=== PATIENT | male | born 1955 | race African-American/Black ===

== ENCOUNTER 2020-07-08 07:12 | Inpatient (IN) | payer OTHER ==
[~2020-07-08] VITALS: Ht 188 cm; Wt 99.8 kg
[2020-07-08 09:17] LABS: Basophils # (auto) 0 10 ^3/uL (0-0.2); Basophils % (auto) 0.5 % (0.0-2.0); Eosinophils # (auto) 0 10 ^3/uL (0-0.8); Eosinophils % (auto) 0.3 % (0.0-7.0); Hematocrit 48.1 % (41.0-53.0); Hemoglobin 16.6 g/dL (13.5-17.5); Lymphocytes # (auto) 0.9 10 ^3/uL (0.4-5.4); Lymphocytes % (auto) 11.9 % (10.0-50.0); Mean Corpuscular Hgb Conc. 34.6 g/dL (32.0-36.0); Mean Corpuscular Volume 95.5 fL (80.0-100.0); Monocytes # (auto) 0.5 10 ^3/uL (0-1.3); Neutrophils # (auto) 5.9 10 ^3/uL (1.6-8.6); Neutrophils % (auto) 80.3 % (37.0-80.0); Platelet Count (auto) 142 10^3/uL (140-450); Red Blood Cells 5.04 10^6/uL (4.5-5.90); Red Cell Distribution Width 13.9 % (11.8-14.3); White Blood Cell 7.4 10^3/uL (4.4-10.8)
[2020-07-08 09:29] LABS: Calcium 9.5 mg/dL (8.5-10.1); Potassium 3.9 mmol/L (3.5-5.1)
[2020-07-08 09:34] LABS: BUN/Creatinine Ratio 6.5
[2020-07-08] MEDS ORDERED: MORPHINE SULF INJ 2 MG/ML SYRINGE 1ML IV ONE (09:45)
[2020-07-08] MEDS ORDERED: NITROGLYCERIN 2% OINT 1GM PKG TD ONE (09:45)
[2020-07-08] MEDS ORDERED: ASPirin 81 mg TAB PO ONE (09:45)
[2020-07-08] MEDS ORDERED: FUROSEMIDE 20 MG/2 ML VIAL IV ONE (10:15)
[2020-07-08] MEDS ORDERED: ASPI-498 PO (11:14)
[2020-07-08] MEDS ORDERED: LISI-275 PO (11:14)
[2020-07-08] MEDS ORDERED: FURO1TAB33 PO (11:14)
[2020-07-08] MEDS ORDERED: ENOXAPARIN SOD 100 MG/1 ML SYRINGE SC ONE (11:15)
[2020-07-08] MEDS ORDERED: NITROGLYCERIN 0.4 MG SL TAB SL PRN ×3 (11:15→12:45)
[2020-07-08] MEDS ORDERED: MORPHINE SULF INJ 2 MG/ML SYRINGE 1ML IV PRN ×2 (11:15→12:45)
[2020-07-08 11:35] LABS: INR 1.15 (0.9-1.15); Partial Thromboplastin Time 30.3 sec (23.0-31.2)
[2020-07-08 11:55] LABS: Urine Bacteria NONE SEEN /hpf (None Seen); Urine Blood TRACE /uL (Negative); Urine Specific Gravity 1.007 (1.001-1.035); Urine WBC 2 /hpf (0 - 3)
[2020-07-08] MEDS ORDERED: ONDANSETRON HCL 4 MG/2 ML VIAL IV PRN (12:45)
[2020-07-08] MEDS ORDERED: ATORVASTATIN 20 MG TAB PO ONE (12:45)
[2020-07-08] MEDS ORDERED: ALUM & MAG HYDROX-SIMETH LIQ(MAALOX) 30 ML PO ONE (12:45)
[2020-07-08] MEDS ORDERED: ALBUTEROL SULF 2.5 MG/0.5ML(0.5%) NEB SOLN NEB ONE (12:45)
[2020-07-08] MEDS ORDERED: DOCUSATE SOD 100 MG CAP PO PRN (12:45)
[2020-07-08] MEDS ORDERED: AZITHROMYCIN 500MG/ 250ML 250 ML IV ONE (12:45)
[2020-07-08] MEDS ORDERED: ACETAMINOPHEN 325 MG TAB PO PRN (12:45)
[2020-07-08] MEDS ORDERED: cefTRIAXone 1GM/50ML D5W 50 ML IV ONE (12:45)
[2020-07-08] MEDS ORDERED: METOPROLOL TARTRATE 25 MG TAB PO ONE (12:45)
[2020-07-08] MEDS ORDERED: MORPHINE SULFATE 4 MG/ML SYR/VIAL IV PRN (12:45)
[2020-07-08] MEDS ORDERED: HYDROcodone-ACET 5/325MG TAB PO PRN (12:45)
[2020-07-08] MEDS ORDERED: LORazepam 0.5 MG TAB PO PRN (12:45)
[2020-07-08] MEDS: IPRATROPIUM BROM 0.5 MG/2.5ML INH SOL NEB SCH ×4 (14:00→22:29)
[2020-07-08 14:13] VITALS: BP 132/73
[2020-07-08 14:43] LABS: Urine Bacteria NONE SEEN /hpf (None Seen); Urine Blood 1+ /uL (Negative); Urine Hyaline Cast FEW /lpf (0 - 2); Urine Mucus FEW (None Seen); Urine Specific Gravity 1.007 (1.001-1.035); Urine WBC 1 /hpf (0 - 3)
[2020-07-08] MEDS: MAGNESIUM SULFATE 1GM/100ML 100 ML IV SCH ×2 (15:28→17:21)
[2020-07-08 15:37] LABS: Barbiturate Scree,Urine NEGATIVE (NEGATIVE); Benzodiazephine Screen, Urine NEGATIVE (NEGATIVE); Cannabinoid Screen, Urine POSITIVE (NEGATIVE); Cocaine Screen, Urine NEGATIVE (NEGATIVE); Phencyclidine Screen, Urine NEGATIVE (NEGATIVE)
[2020-07-08 15:44] LABS: Amphetamine Screen, Urine NEGATIVE (NEGATIVE); Opiate Scree,Urine NEGATIVE (NEGATIVE)
[2020-07-08 17:04] VITALS: BP 152/84
[2020-07-08] MEDS: FUROSEMIDE 20 MG/2 ML VIAL IV SCH (18:19)
[2020-07-08] MEDS: ALBUTEROL SULF 2.5 MG/0.5ML(0.5%) NEB SOLN NEB PRN ×2 (18:21→22:29)
[2020-07-08] MEDS: CARVEDILOL 3.125 MG TAB PO SCH (22:07)
[2020-07-08 22:25] VITALS: BP 117/65
[2020-07-09] MEDS: IPRATROPIUM BROM 0.5 MG/2.5ML INH SOL NEB SCH ×6 (02:00→22:29)
[2020-07-09] MEDS: MORPHINE SULF INJ 2 MG/ML SYRINGE 1ML IV PRN ×2 (04:24→21:48)
[2020-07-09 04:55] VITALS: BP 148/77
[2020-07-09] MEDS: FUROSEMIDE 20 MG/2 ML VIAL IV SCH ×2 (05:54→18:29)
[2020-07-09] MEDS: ALBUTEROL SULF 2.5 MG/0.5ML(0.5%) NEB SOLN NEB PRN ×3 (06:19→14:40)
[2020-07-09 07:12] LABS: Basophils # (auto) 0.1 10 ^3/uL (0-0.2); Eosinophils # (auto) 0 10 ^3/uL (0-0.8); Eosinophils % (auto) 0.6 % (0.0-7.0); Hematocrit 48.4 % (41.0-53.0); Hemoglobin 16.7 g/dL (13.5-17.5); Lymphocytes # (auto) 1.3 10 ^3/uL (0.4-5.4); Lymphocytes % (auto) 15.8 % (10.0-50.0); Mean Corpuscular Hemoglobin 32.9 pg (28.0-32.0); Mean Corpuscular Hgb Conc. 34.6 g/dL (32.0-36.0); Mean Corpuscular Volume 95.3 fL (80.0-100.0); Monocytes # (auto) 0.7 10 ^3/uL (0-1.3); Monocytes % (auto) 8.5 % (0.0-12.0); Neutrophils # (auto) 6.1 10 ^3/uL (1.6-8.6); Neutrophils % (auto) 74.1 % (37.0-80.0); Nucleated Red Blood Cells % 0.1 %; Platelet Count (auto) 153 10^3/uL (140-450); Red Blood Cells 5.08 10^6/uL (4.5-5.90); Red Cell Distribution Width 13.9 % (11.8-14.3); White Blood Cell 8.2 10^3/uL (4.4-10.8)
[2020-07-09 07:29] LABS: Albumin 3.9 g/dL (3.4-5.0); Calcium 8.9 mg/dL (8.5-10.1); Magnesium 2.2 mg/dL (1.6-2.6); Potassium 3.5 mmol/L (3.5-5.1)
[2020-07-09 07:32] LABS: INR 1.13 (0.9-1.15)
[2020-07-09 07:35] LABS: BUN/Creatinine Ratio 6.9; Bilirubin, Total 1.4 mg/dL (0.2-1.0); Phosphorus 3.4 mg/dL (2.5-4.90); Total Protein 7.6 g/dL (6.4-8.2); Uric Acid 6.6 mg/dL (3.5-7.2)
[2020-07-09] MEDS: cefTRIAXone 1GM/50ML D5W 50 ML IV SCH (08:42)
[2020-07-09 09:00] VITALS: BP 130/94
[2020-07-09] MEDS: AZITHROMYCIN 500MG/ 250ML 250 ML IV SCH (09:43)
[2020-07-09] MEDS: ASPirin 81 mg TAB PO SCH (09:43)
[2020-07-09] MEDS: ENOXAPARIN SOD 40 MG/0.4 ML SYRINGE SC SCH (09:43)
[2020-07-09] MEDS: CARVEDILOL 3.125 MG TAB PO SCH ×2 (09:44→21:48)
[2020-07-09] MEDS: LISINOPRIL 5 MG TAB PO SCH (09:45)
[2020-07-09] MEDS: DOCUSATE SOD 100 MG CAP PO SCH (09:45)
[2020-07-09 13:00] VITALS: BP 122/86
[2020-07-09 17:00] VITALS: BP 125/61
[2020-07-09] MEDS ORDERED: ATORVASTATIN 20 MG TAB PO SCH (22:00)
[2020-07-09 22:02] VITALS: BP 127/90
[2020-07-10] MEDS: IPRATROPIUM BROM 0.5 MG/2.5ML INH SOL NEB SCH ×3 (02:19→09:42)
[2020-07-10 05:00] VITALS: BP 100/62
[2020-07-10 09:00] VITALS: BP 110/67
[2020-07-10] MEDS: cefTRIAXone 1GM/50ML D5W 50 ML IV SCH (09:14)
[2020-07-10] MEDS: AZITHROMYCIN 500MG/ 250ML 250 ML IV SCH (09:14)
[2020-07-10] MEDS: ASPirin 81 mg TAB PO SCH (09:15)
[2020-07-10] MEDS: CARVEDILOL 3.125 MG TAB PO SCH (09:15)
[2020-07-10] MEDS: DOCUSATE SOD 100 MG CAP PO SCH (09:15)
[2020-07-10] MEDS: ENOXAPARIN SOD 40 MG/0.4 ML SYRINGE SC SCH (09:16)
[2020-07-10] MEDS: LISINOPRIL 5 MG TAB PO SCH (09:16)
[2020-07-10] MEDS: ALBUTEROL SULF 2.5 MG/0.5ML(0.5%) NEB SOLN NEB PRN (09:42)
[2020-07-10] MEDS ORDERED: CAR3125T PO (11:51)
[2020-07-10] MEDS ORDERED: LISI-275 PO (11:51)
[2020-07-10] MEDS ORDERED: FURO40TA4 PO (11:51)
[2020-07-10] MEDS ORDERED: ATOR20TA50 PO (11:51)
[2020-07-10] MEDS ORDERED: POTA10TA51 PO (11:54)
[2020-07-10] MEDS ORDERED: FUROSEMIDE 40 MG/4 ML VIAL IV ONE (12:00)
[2020-07-10 13:00] VITALS: BP 109/68
[2020-07-11] MEDS ORDERED: FUROSEMIDE 40 MG/4 ML VIAL IV SCH (10:00)
== END 2020-07-10 12:54 | disposition home or self-care (01) | DRG 194 ==
LOC: ER 07:12 → UNDOADMIN 11:06 → TELE 11:06 → TELE-CENTR 11:06
PROVIDERS: ADMIT Hospitalist; ATTEND Internal Medicine Nephrology
DX: I13.0 Hypertensive heart and chronic kidney disease with heart failure and stage 1 through stage 4 chronic kidney disease, or unspecified chronic kidney disease (principal); I21.A1 Myocardial infarction type 2; I50.23 Acute on chronic systolic (congestive) heart failure; Z20.822 Contact with and (suspected) exposure to COVID-19; J44.9 Chronic obstructive pulmonary disease, unspecified; E66.9 Obesity, unspecified; M19.90 Unspecified osteoarthritis, unspecified site; E78.5 Hyperlipidemia, unspecified; I49.3 Ventricular premature depolarization; N18.2 Chronic kidney disease, stage 2 (mild); Z91.19 Patient's noncompliance with other medical treatment and regimen; Z79.899 Other long term (current) drug therapy; Z68.28 Body mass index [BMI] 28.0-28.9, adult
CPT/HCPCS: 36415; 71045; 80048; 80053; 80307; 81001; 82306; 83036; 83735; 83880; 84100; 84443; 84484; 84550; 85025; 85610; 85730; 87040; 87086; 87426; 93005; 93306; 94640; 96365; 96367; 96375; G0378; J0696; J2405